=== PATIENT | male | born 1980 | race Caucasian/White ===

== ENCOUNTER 2020-12-27 06:59 | Emergency (ER) | payer BC ==
[2020-12-27 07:53] LABS: HEMOGLOBIN 14.8 gm/dl (14.0-17.5); RED BLOOD COUNT 5.15 M/UL (4.20-5.50); WHITE BLOOD COUNT 7.7 K/UL (4.5-11.0)
[2020-12-27 08:56] LABS: BUN/CREATININE RATIO 12 (0-10)
[2020-12-27] MEDS ORDERED: FLOMAX0.4 MG PO (09:26)
[2020-12-27] MEDS ORDERED: ZOFRAN4 MG PO (09:26)
[2020-12-27] MEDS ORDERED: TORADOL 10 MG T10 MG PO (09:26)
== END 2020-12-27 10:33 | disposition home or self-care (01) ==
LOC: ER1 06:59
PROVIDERS: Internal Medicine
DX: N13.2 Hydronephrosis with renal and ureteral calculous obstruction (principal); I10 Essential (primary) hypertension; Z88.2 Allergy status to sulfonamides
CPT/HCPCS: 36415; 80048; 81001; 83690; 85025; 96374; 96375; 99284; J1885; J2405